=== PATIENT | female | born 1975 | race Caucasian/White ===

== ENCOUNTER 2024-04-09 15:08 | Inpatient (IN) | payer SELFPAY ==
[2024-04-09] VITALS (8 sets, daily range): BP systolic 143–200; BP diastolic 94–155; PULSE 87–111; RESP 14–20; TEMP 36.8–37.2; O2SAT 79–97; BMI 44.2
--- NOTE | 2024-04-09 15:30 | CTR_ITS ---
PROCEDURE INFORMATION: Exam: CT Head Without Contrast Exam date and time: 04/09/2024 4:11 PM Age: 48 years old Clinical indication: Altered mental status/memory loss; Additional info: AMS, had JENSEN this am, took meds now altered speech TECHNIQUE: Imaging protocol: Computed tomography of the head without contrast. Radiation optimization: All CT scans at this facility use at least one of these dose optimization techniques: automated exposure control; mA and/or kV adjustment per patient size (includes targeted exams where dose is matched to clinical indication); or iterative reconstruction. COMPARISON: No relevant prior studies available. RADIATION DOSE METRICS: Total DLP (mGy-cm): 1122 FINDINGS: Brain: Upward extension of the anterior superior corner of the cerebellum into the tentorial notch. No definitive cerebellar mass lesion or vasogenic edema, however.. No hemorrhage. Unremarkable white matter. No mass effect. Cerebral ventricles: No ventriculomegaly. Paranasal sinuses: Visualized sinuses are unremarkable. No fluid levels. Mastoid air cells: Visualized mastoid air cells are well aerated. Bones: Unremarkable. No acute fracture. Soft tissues: Unremarkable. CT/CT head wo con* [id number] IMPRESSION: 1. Upward extension of part of the anterior superior corner of the cerebellum into the tentorial notch is of unclear significance. No definitive posterior fossa lesion , cerebellar lesion or vasogenic edema. However, MR recommended to exclude any underlying lesion or transtentorial herniation. 2. No other significant intracranial abnormality identified on noncontrast CT.
--- NOTE | 2024-04-09 15:32 | XRR_ITS ---
PROCEDURE INFORMATION: Exam: XR Chest Exam date and time: 04/09/2024 4:17 PM Age: 48 years old Clinical indication: Wheezing; Additional info: AMS, HX copd, wheezing TECHNIQUE: Imaging protocol: Radiologic exam of the chest. Views: 1 view. COMPARISON: No relevant prior studies available. FINDINGS: Lungs: No focal consolidation. No pleural effusion. Pleural spaces: No pneumothorax. Heart/Mediastinum: Borderline cardiomegaly. Mild vascular congestion likely present. Bones/joints: No acute abnormality. XR/XR chest 1V [id number] IMPRESSION: Borderline cardiomegaly. No interstitial edema or focal consolidation.
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
[2024-04-09 15:54] LABS: Basophils # 0.1 10^3/uL (0.0-0.1); Basophils % 0.7 %; Eosinophils # 0.2 10^3/uL (0.0-0.8); Eosinophils % 1.4 %; Hematocrit 40.4 % (36-47); Lymphocytes # 3.1 10^3/uL (0.8-4.8); Lymphocytes % 24.2 %; Mean Corpuscular HGB Conc 27.5 g/dL (30-55); Mean Corpuscular Hemoglobin 20.9 pg (27-33); Mean Corpuscular Volume 76.2 fl (85-98); Mean Platelet Volume 9.5 fL (7.4-10.4); Monocytes # 0.8 10^3/uL (0.2-0.9); Monocytes % 6.3 %; Neutrophils # 8.59 10^3/uL (1.8-7.7); Neutrophils % 66.5 %; Nucleated Red Blood Cells % 0.2 %; Platelet Count 382 10^3/cmm (157-399); Red Cell Distribution Width 21.5 % (12.1-15.1)
[2024-04-09 15:56] LABS: HCG Qualitative Urine. Negative (Negative)
--- NOTE | 2024-04-09 15:57 | ECG_ITS ---
[facility] 2024[facility]09 Pat Name: Christel Liriano Department: Room: Gender: Female Prep Manager: : [id number] Requested By: Lina Butt Order Number: [id number] Reading MD: MUNA TAPIA Measurements Intervals [place] Rate: 98 P: 66 DE: 128 QRS: 7 QRSD: 101 T: 50 QT: 365 QTc: 467 Interpretive Statements SINUS RHYTHM LOW QRS VOLTAGE IN PRECORDIAL LEADS [QRS DEFLECTION < 1.0 mV IN CHEST LEADS] No previous ECG available for comparison Electronically Signed On 04-10-2024 18:56:31 TRIMMING PRESS OPERATOR by MUNA TAPIA [email or web address]
--- NOTE | 2024-04-09 16:04 | PC.PHAR ---
Unable to find any external medications from [facility], or [facility] in [place]. I phoned [place] [employer]-which is listed on her profile. They show coverage ended in 2011 and shows no med history since then.
[2024-04-09 16:09] LABS: Bilirubin Urine Negative (Negative); Blood Urine 1+ (Negative); Glucose Urine UA Negative (Normal); Ketones Urine Negative (Negative); Leukocyte Esterase Urine Negative (Negative); Nitrate Urine Negative (Negative); Protein Urine 1+ (Negative); Specific Gravity, Urine 1.008 (1.005-1.030); Urine Appearance Clear (CLEAR); Urine Color Yellow (Yellow); Urobilinogen Urine 0.2 mg/dL (Negative); pH Urine 5.5 (5-7)
[2024-04-09 16:10] LABS: Lactic Sepsis W/Reflex 1.5 mmol/L (0.5-2.2)
[2024-04-09 16:13] LABS: Acetaminophen < 5.0 ug/mL (10-30); Alanine Aminotransferase 16 U/L (0-33); Albumin Level 4.7 g/dL (3.5-5.2); Alcohol Level < 10 mg/dL (0-10); Alkaline Phosphatase 91 U/L (35-105); Anion Gap 17.2 (5-19); Aspartate Amino Transferase 14 U/L (0-32); Blood Urea Nitrogen 10 mg/dL (6-20); Calcium 9.7 mg/dL (8.5-10.5); Carbon Dioxide 26 mmol/L (22-29); Chloride 102 mmol/L (98-107); Creatinine Clr Calc Pharmacy 120.4559; Globulin 3.3 g/dL (1.3-4.6); Glomerular Filtration Rate 89.7 mL/min (90-130); Glucose 92 mg/dL (65-115); Osmolality Calculated 291 mOsm/kg (285-295); Potassium 4.2 mmol/L (3.5-5.1); Salicylate < 0.3 mg/dL (3-10); Sodium 141 mmol/L (136-145); Total Bilirubin 0.2 mg/dL (0.15-1.2)
[2024-04-09 16:14] LABS: Add Urine Microscopic? YES; Bacteria Urine None Seen /hpf; Hyaline Casts Urine 0-4 /lpf; RBC Urine 0-2 /hpf (0-2); Squamous Epithelial Cell Urine 0-5 /hpf (0-5); WBC Urine 0-5 /hpf (0-5)
[2024-04-09 16:15] LABS: Amphetamines Screen Urine Negative (Negative); Barbiturates Screen Urine Negative (Negative); Benzodiazepines Screen Urine Positive (Negative); Cocaine Screen Urine Negative (Negative); Opiate Screen Urine Negative (Negative); PCP Screen Urine Negative (Negative); THC Screen Urine Negative (Negative)
[2024-04-09 16:20] LABS: Procalcitonin 0.05 ng/mL (0-0.5)
[2024-04-09 18:05] LABS: Covid PCR NEGATIVE (Negative); Influenza A NEGATIVE (Negative); Influenza B NEGATIVE (Negative); Respiratory Syncytial Virus Ce NEGATIVE (Negative)
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
[2024-04-09 18:17] LABS: Erythrocyte Sedimentation Rate 21 mm/hr (0-15)
[2024-04-09 18:27] LABS: Troponin(5th) Baseline < 6 ng/L (0-10)
[2024-04-09 18:40] LABS: Ammonia 19 umol/L (11-51)
--- NOTE | 2024-04-09 18:40 | ECG_ITS ---
[employer] Test Date: 2024-04-09 Pat Name: Christel Liriano Department: Room: Gender: Female Process Developer: : 1975 Requested By: Hal Bal Order Number: [id number] Bessie MD: MUNA TAPIA Measurements Intervals [place] Rate: 107 P: 69 IA: 132 QRS: 2 QRSD: 89 T: 59 QT: 339 QTc: 453 Interpretive Statements SINUS TACHYCARDIA LOW QRS VOLTAGE IN PRECORDIAL LEADS [QRS DEFLECTION < 1.0 mV IN CHEST LEADS] SEPTAL MYOCARDIAL INFARCTION , PROBABLY OLD [40+ ms Q WAVE IN V1/V2] Compared to ECG 04/09/2024 15:57:11 Myocardial infarct finding now present Sinus rhythm no longer present Electronically Signed On 04-10-2024 18:55:58 SEAM PRESSER by MUNA TAPIA [id number]
[2024-04-09] MEDS: metoprolol tartrate 1 mg/1 mL SDV 5 mL 5 MG IVP (19:08)
[2024-04-09] MEDS: sodium chloride 0.9% 500 ML IV (19:46)
[2024-04-09 20:58] LABS: Estmated Average Glucose 120; Hemoglobin A1C 5.8 % (4.0-6.0)
[2024-04-09 21:05] LABS: Chol HDL Ratio 3.95 mg/dL (0.0-4.40); Cholesterol 170 mg/dL (0-200); HDL Cholesterol 43 mg/dL (60-100); LDL Cholesterol Calculated 72 mg/dL (50-129); LDL HDL Ratio 1.67 RATIO (0.00-3.22); Thyroid Stimulating Hormone 2.47 uIU/mL (0.27-4.20); Triglycerides 273 mg/dL (0-150)
--- NOTE | 2024-04-09 21:52 | PC.NURSE ---
Unable to complete admission assessment due to patient being sedated.
--- NOTE | 2024-04-09 22:12 | ECG_ITS ---
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: : 1975 Requested By: Hal Bal Order Number: [id number] Reading MD: MUNA TAPIA Measurements Intervals [place] Rate: 89 P: 58 SD: 149 QRS: 5 QRSD: 102 T: 53 QT: 375 QTc: 458 Interpretive Statements SINUS RHYTHM LOW QRS VOLTAGE IN PRECORDIAL LEADS [QRS DEFLECTION < 1.0 mV IN CHEST LEADS] PATTERN CONSISTENT WITH PULMONARY DISEASE Compared to ECG 04/09/2024 18:40:25 Sinus tachycardia no longer present Myocardial infarct finding no longer present Electronically Signed On 04-10-2024 19:30:10 RN PERINATAL by MUNA TAPIA [id number]
[2024-04-09] MEDS: ipratropium-albuterol 3 mL Neb INHALATION (22:19)
[2024-04-09] MEDS: pantoprazole 40 mg SDV IVP (22:37)
[2024-04-09] MEDS: sodium chloride 0.9% 1,000 ML 50 ML IV (22:37)
[2024-04-09] MEDS: enoxaparin 40 mg/0.4 mL Syringe SUBCUT (22:37)
[2024-04-10] VITALS (7 sets, daily range): BP systolic 121–159; BP diastolic 70–84; PULSE 100–113; RESP 14–18; TEMP 36.7–37.2; O2SAT 83–95
--- NOTE | 2024-04-10 00:04 | ECG_ITS ---
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
[2024-04-10 00:12] LABS: Troponin 5 6HR Delta 0.00001 ng/L (0-12)
[2024-04-10 03:14] LABS: Basophils # 0.1 10^3/uL (0.0-0.1); Basophils % 0.6 %; Eosinophils # 0.2 10^3/uL (0.0-0.8); Eosinophils % 1.2 %; Hematocrit 37.5 % (36-47); Lymphocytes # 2.6 10^3/uL (0.8-4.8); Mean Corpuscular HGB Conc 27.2 g/dL (30-55); Mean Corpuscular Hemoglobin 20.9 pg (27-33); Mean Corpuscular Volume 76.8 fl (85-98); Mean Platelet Volume 9.4 fL (7.4-10.4); Monocytes # 1.1 10^3/uL (0.2-0.9); Monocytes % 7.5 %; Neutrophils # 10.42 10^3/uL (1.8-7.7); Neutrophils % 71.9 %; Nucleated Red Blood Cells % 0 %; Platelet Count 346 10^3/cmm (157-399); Red Blood Count 4.88 10^6/uL (3.85-5.65); Red Cell Distribution Width 21.2 % (12.1-15.1); White Blood Count 14.48 10^3/uL (3.29-11.43)
[2024-04-10 03:40] LABS: Alanine Aminotransferase 14 U/L (0-33); Albumin Level 4.5 g/dL (3.5-5.2); Alkaline Phosphatase 101 U/L (35-105); Anion Gap 13.4 (5-19); Aspartate Amino Transferase 13 U/L (0-32); Blood Urea Nitrogen 9 mg/dL (6-20); Calcium 8.8 mg/dL (8.5-10.5); Carbon Dioxide 29 mmol/L (22-29); Chloride 103 mmol/L (98-107); Globulin 2.7 g/dL (1.3-4.6); Glomerular Filtration Rate 107.2 mL/min (90-130); Glucose 141 mg/dL (65-115); Magnesium 2.1 mg/dL (1.7-2.3); Osmolality Calculated 293 mOsm/kg (285-295); Phosphorus 4.7 mg/dL (2.5-4.5); Potassium 4.4 mmol/L (3.5-5.1); Sodium 141 mmol/L (136-145); Total Bilirubin 0.2 mg/dL (0.15-1.2); Total Protein 7.2 g/dL (6.6-8.7)
--- NOTE | 2024-04-10 08:29 | XR_ITS ---
WS: [id number] Portable AP upright chest, 04/10/2024 Clinical Data: sob Comparison: Portable chest, 04/09/2024 Findings: There is minimal patchy opacity in both lower lobes probably related to poor inspiration an d atelectasis. No nodules, masses or effusions are seen. The heart is slightly enlarged. The pulmonar y vascularity is not increased. No pneumonia or pneumothorax is seen. The aortic arch and descending thoracic aorta are tortuous. Monitor leads are on the chest wall. XR/XR chest 1V portable [id number] Impression: 1. Minimal bilateral lower lobe patchy opacity may represent atelectasis but co uld be early pneumonia. 2. Cardiomegaly and atherosclerosis.
--- NOTE | 2024-04-10 09:46 | PC.CHAP ---
Pastoral Care Encounter/Spiritual Assessment Type of Contact [] Declined medical secretary visit [] Patient/Family/Request visit [] Outpatient visit [] Follow-up visit [] Physician referral [] Code/Alert [x] Routine visit [] Staff referral [] Actively dying [x] Patient sleeping [] Family support [] [] Out of room [] Palliative care [] [] Receiving care in room [] Pre-surgical visit [] Trauma [] Long length of stay [] ICU visit [] Other: Relational/Emotional Strength [] Patient feels connected with others/family/visitors/staff [] Distress [] Loneliness/isolation [] Abandonment Spirituality of Patient [] Person of Annabella [] Attends Christian of their Annabella [] Believes in Prayer [] Reads Bible or Lutheran materials [] There are Spiritual issues to be addressed Child Care Supervisor Interventions [x] Prayer [] Active listening [] Non-anxious presence [] Spiritual/emotional support [] Crisis/trauma care [] Spiritual counseling [] Bereavement support [] Provided bereavement packet [] Provided Bible/devotional materials [] Provided toy/stuffed animal, coloring book to patient or family member [] Provided Communion [] Anointing/[place] [] Salvation [] Completed spiritual assessment [] Other: Impact on Illness or Injury [] Angry [] Fearful [] Anxious [] Often cries [] Exhaustion [] Unable to work [] Unable to attend gnosticist [] Unable to walk/stand [] Unable to read [] Unable to drive [] Unable to eat/drink [] Unable to sleep [] Unable to be with family [] Patient intubated [] Other: Summary Time spent with patient
--- NOTE | 2024-04-10 10:44 | MR_ITS ---
WS: [id number] MRI HEAD WITHOUT CONTRAST TECHNIQUE: Sagittal T1, T2 axial, T2 axial FLAIR, axial and coronal T1 images, axial susceptibility w eighted imaging, axial diffusion weighted images, and coronal T2 images were obtained. CLINICAL INFORMATION: ams, unsteadiness COMPARISON: CT 04/09/2024 FINDINGS: Images degraded by motion which limits evaluation No evidence of restricted diffusion to suggest acute ischemia. No hydrocephalus. Normal chan-white di fferentiation. No suspicious intracranial signal abnormalities considering motion artifact. Normal po sterior fossa. Normal vascular flow voids at the skull base. No hemosiderin on the susceptibility kassi ghted images. MR/MR head wo con* [id number] IMPRESSION: Images degraded by motion which limits evaluation 1. No evidence of restricted diffusion to suggest acute ischemia. 2. No acute finding considering motion artifact
[2024-04-10 10:47] LABS: NT Pro B Type Natriuretic Pept < 36 pg/mL (0-125); Procalcitonin 0.04 ng/mL (0-0.5)
[2024-04-10 10:58] LABS: C Reactive Protein 13.8 mg/L (0.0-4.9)
[2024-04-10] MEDS: aspirin 81 mg EC Tablet PO (11:08)
[2024-04-10] MEDS: cefTRIAXone 1,000 mg SDV 1000 MG IVP (11:40)
[2024-04-10] MEDS: AZITHROMYCIN ADD-Vantage 500 MG in 0.9% NaCl ADD-Vantage 250 ML 250 MG IV (11:40)
[2024-04-10] MEDS: gabapentin 400 mg Capsule PO (11:41)
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
[2024-04-10] MEDS: pantoprazole 40 mg SDV IVP (19:36)
[2024-04-10] MEDS: sodium chloride 0.9% 1,000 ML 50 ML IV (19:36)
[2024-04-10] MEDS: enoxaparin 40 mg/0.4 mL Syringe SUBCUT (19:36)
[2024-04-10] MEDS: quetiapine 100 mg Tablet PO (19:37)
[2024-04-10] MEDS: gabapentin 300 mg Capsule PO (19:37)
[2024-04-10] MEDS: atorvastatin 40 mg Tablet PO (19:37)
[2024-04-10] MEDS: acetaminophen 325 mg Tablet 650 MG PO (19:37)
[2024-04-11] VITALS (9 sets, daily range): BP systolic 120–156; BP diastolic 70–96; PULSE 87–111; RESP 14–19; TEMP 36.6–37.1; O2SAT 87–97
[2024-04-11] MEDS: acetaminophen 325 mg Tablet 650 MG PO ×2 (05:26→08:08)
[2024-04-11 05:37] LABS: Basophils # 0.1 10^3/uL (0.0-0.1); Basophils % 0.5 %; Eosinophils # 0.1 10^3/uL (0.0-0.8); Eosinophils % 1.1 %; Hematocrit 31.7 % (36-47); Lymphocytes # 1.6 10^3/uL (0.8-4.8); Lymphocytes % 15.9 %; Mean Corpuscular HGB Conc 27.4 g/dL (30-55); Mean Corpuscular Hemoglobin 20.7 pg (27-33); Mean Corpuscular Volume 75.5 fl (85-98); Mean Platelet Volume 9.2 fL (7.4-10.4); Monocytes # 0.5 10^3/uL (0.2-0.9); Monocytes % 5.1 %; Neutrophils # 7.53 10^3/uL (1.8-7.7); Neutrophils % 76.1 %; Nucleated Red Blood Cells % 0 %; Platelet Count 242 10^3/cmm (157-399); Red Cell Distribution Width 21.2 % (12.1-15.1); White Blood Count 9.89 10^3/uL (3.29-11.43)
[2024-04-11 05:57] LABS: Alanine Aminotransferase 11 U/L (0-33); Albumin Level 3.9 g/dL (3.5-5.2); Alkaline Phosphatase 82 U/L (35-105); Anion Gap 11.4 (5-19); Aspartate Amino Transferase 10 U/L (0-32); Blood Urea Nitrogen 7 mg/dL (6-20); Calcium 8.6 mg/dL (8.5-10.5); Carbon Dioxide 30 mmol/L (22-29); Chloride 100 mmol/L (98-107); Creatinine Clr Calc Pharmacy 227.6805; Globulin 2.5 g/dL (1.3-4.6); Glomerular Filtration Rate 171.1 mL/min (90-130); Glucose 140 mg/dL (65-115); Osmolality Calculated 284 mOsm/kg (285-295); Phosphorus 2.7 mg/dL (2.5-4.5); Potassium 4.4 mmol/L (3.5-5.1); Sodium 137 mmol/L (136-145); Total Bilirubin 0.2 mg/dL (0.15-1.2); Total Protein 6.4 g/dL (6.6-8.7)
[2024-04-11] MEDS: venlafaxine ER (24HR) 75 mg Capsule PO (08:06)
[2024-04-11] MEDS: aspirin 81 mg EC Tablet PO (08:06)
[2024-04-11] MEDS: pantoprazole 40 mg SDV IVP (09:05)
[2024-04-11] MEDS: sucralfate 1 gm/10 mL Oral Liq UDC PO ×2 (09:05→15:47)
[2024-04-11 10:02] LABS: Ferritin 8 ng/mL (15-150); Iron 26 ug/dL (37-145)
[2024-04-11] MEDS: AZITHROMYCIN ADD-Vantage 500 MG in 0.9% NaCl ADD-Vantage 250 ML 250 MG IV (10:34)
[2024-04-11] MEDS: cefTRIAXone 1,000 mg SDV 1000 MG IVP (10:34)
[2024-04-11] MEDS: gabapentin 300 mg Capsule PO (11:33)
[2024-04-11 12:07] LABS: Hematocrit 31.8 % (36-47)
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
--- NOTE | 2024-04-11 12:30 | CTR_ITS ---
PROCEDURE INFORMATION: Exam: CTA Chest With Contrast Exam date and time: 04/11/2024 12:54 PM Age: 48 years old Clinical indication: Other: Hypoxia TECHNIQUE: Imaging protocol: Computed tomographic angiography of the chest with contrast. Exam focused on the arteries. 3D rendering (Not supervised by radiologist): MIP and/or 3D reconstructed images were created by the technologist. Radiation optimization: All CT scans at this facility use at least one of these dose optimization techniques: automated exposure control; mA and/or kV adjustment per patient size (includes targeted exams where dose is matched to clinical indication); or iterative reconstruction. Contrast material: OMNIPAQUE 350; Contrast volume: 100 ml; Contrast route: INTRAVENOUS (IV); COMPARISON: CR XR chest 1V portable [id number] 04/10/2024 8:38 AM RADIATION DOSE METRICS: Total DLP (mGy-cm): 548.59 FINDINGS: Pulmonary arteries: No evidence of acute central or lobar pulmonary embolism. Evaluation of distal subsegmental branches is limited due to respiratory motion artifact. Aorta: Unremarkable. No aortic aneurysm. No aortic dissection. Lungs: Focal consolidative opacities in the bilateral lower lobes with bronchial wall thickening . Additional areas of linear subsegmental atelectatic changes bilaterally. Pleural spaces: Unremarkable. No pneumothorax. No pleural effusion. Heart: Unremarkable. No cardiomegaly. No pericardial effusion. Lymph nodes: Prominent mediastinal lymph nodes however none meeting pathological criteria. Likely reactive in etiology. Liver: Hepatic steatosis. Gallbladder and biliary ducts: Status post cholecystectomy. Bones/joints: Mild multilevel degenerative disease of the thoracolumbar spine. Soft tissues: Unremarkable. CT/CT angio chest PE protcl [id number] IMPRESSION: 1. No evidence of acute central or lobar pulmonary embolism. Evaluation of distal branches is limited due to respiratory motion artifact. 2. Bibasilar consolidative opacities likely representing atelectasis however superimposed infectious etiology/pneumonia is not entirely excluded.
[2024-04-11] MEDS: iohexol 350 mg/mL 500 mL Btl (per mL) IV (12:56)
--- NOTE | 2024-04-11 20:10 | PM.MISC ---
Miscellaneous Note Purpose of Documentation: Cross coverage Note: Got a call from the nurse at around 8 PM that patient has been discharged and is waiting for his oxygen supplementation to be delivered prior to discharge. Patient as per home O2 eval is requiring up to 5 L. On room air is dropping down to 80 to 85%. Discussed in detail with the patient and decided to discontinue the discharge as it would be unsafe for patient to leave without oxygen which would most likely be delivered tomorrow morning. Inform later by the nurse that family decided to take patient home AGAINST MEDICAL ADVICE even though the oxygen was not delivered.
--- NOTE | 2024-04-11 20:28 | PC.NURSE ---
Addendum entered by Claudine Esparza RN 04/11/24 22:02: Pt also stated that she has a pulse ox at home and will check it. She also told this RN that she lives close to [facility] so she will go there when they get to [place] if her O2 drops or she becomes symptomatic. Original Note: This RN was told pt was ready to discharge and was waiting on oxygen to be delivered to the bedside. Pt and her were in the room and upset that it was taking so long to get delivered. This RN called [facility] twice and did not receive a call back. Pt states that her son and 2yo granddaughter are in the car waiting to take her back to [place] and they have to leave. This RN updated the MD aviation boatswain's mate and the MD cancelled the discharge order due to unsafe discharge. This RN let the pt and her know the discharge has been cancelled and they asked to leave AMA. This RN explained the risks of leaving include respiratory failure, seizures, and . Pt says they will have oxygen delivered tomorrow and she has breathing treatments she can take tonight to get her through and if she feels bad enough she will go to the ER. Pt and her verbalized understanding and pt signed AMA form. MD updated.
[2024-04-12 12:08] LABS: Glucose Point of Care 105 mg/dL (70-110)
== END 2024-04-11 20:45 | disposition home or self-care (01) | DRG 947 ==
LOC: ER 18:00 → MEDSURG 19:48
PROVIDERS: Admitting Provider Family Medicine; Emergency Provider Physician Assistant; Visit Provider Family Medicine
DX: R41.82 Altered mental status, unspecified (principal); J18.9 Pneumonia, unspecified organism; Z68.43 Body mass index [BMI] 50.0-59.9, adult; T42.6X5A Adverse effect of other antiepileptic and sedative-hypnotic drugs, initial encounter; T45.0X5A Adverse effect of antiallergic and antiemetic drugs, initial encounter; F41.9 Anxiety disorder, unspecified; M79.7 Fibromyalgia; G89.29 Other chronic pain; F17.200 Nicotine dependence, unspecified, uncomplicated; J44.9 Chronic obstructive pulmonary disease, unspecified; F31.9 Bipolar disorder, unspecified; F43.10 Post-traumatic stress disorder, unspecified; E66.01 Morbid (severe) obesity due to excess calories; Z53.29 Procedure and treatment not carried out because of patient's decision for other reasons
CPT/HCPCS: 0241U; 36415; 36416; 70450; 70551; 71045; 71275; 80053; 80061; 80306; 80307; 81001; 81025; 82140; 82728; 82962; 83036; 83540; 83605; 83735; 83880; 84100; 84145; 84443; 84484; 85014; 85018; 85025; 85651; 86140; 87040; 93005; 94640; 94664; 94760; 96361; 96372; 96374; 99285; G0378; J0456; J0696; J1650; J2470; J3490; J7030; J7040; J7050